=== PATIENT | female | born 1970 | race Two or more races ===

== ENCOUNTER 2019-03-29 19:31 | Emergency (ER) | payer BC ==
[~2019-03-29] VITALS: Ht 162.6 cm; Wt 81.6 kg
--- NOTE | 2019-03-29 19:45 | NUR ---
ED Nurse Note: Recieved pt from home, here with c/o urinary retention and drippling, states has not been able to urinate all day, has happend before in past after gallbladdre surgery but denies any urinary complications, pt attempted sample and unable to go, pt is ambulating bent over and in severe pain, pt bladder is distended, pt straight cath immediately, md informed immediately and urine sample snet, pt tolerated well, urine is clear with no sedimentations.
[2019-03-29 20:18] LABS: APPEARANCE,URINE CLEAR; BILIRUBIN, URINE NEGATIVE (NEGATIVE); COLOR,URINE PALE YELLOW; GLUCOSE, URINE (UA) NEGATIVE (NEGATIVE); KETONES,URINE NEGATIVE (NEGATIVE); LEUKOCYTE ESTERASE ,URINE NEGATIVE (NEGATIVE); NITRITE,URINE NEGATIVE (NEGATIVE); PH,URINE 6.5 (4.5-8.0); PROTEIN,URINE NEGATIVE (NEGATIVE); UROBILINOGEN,URINE NORMAL MG/DL (0.0-1.0)
--- NOTE | 2019-03-29 20:35 | NUR ---
ED Nurse Note: Pt attempted to urinate again, states was successful and not dribbling, pt denies pain, will continue to closely monitor, provider informed of pt results, will continue to monitor and prepare for disposition.
[2019-03-29 20:45] VITALS: BP 119/72
--- NOTE | 2019-03-29 20:55 | Emergency Room Report ---
History of Present Illness General Chief Complaint: Female Urogenital Problems Present Illness HPI 48-year-old female with no significant past medical history here complaining of 1 day of urinary urgency however 2 hours of being unable to void. Patient went earlier to an urgent care due to left-sided flank pain and abdominal pain CT scan without contrast was done patient shows me the report and shows a normal result. No renal stone or pyelonephritis noted. Patient also gave a urine sample which showed no infection at the urgent care and will send out for culture. However 2 hours ago she started being unable to void and having painful urination. Patient was catheterized at the emergency room today however was able to go urinate afterwards. Denies any fever and chills, nausea vomiting, vaginal discharge, abnormal menses. Patient denies any gynecological abnormalities in the past. Denies hematuria. Denies any renal disease. Allergies: Uncoded Allergies: SURGICAL TAPE (Allergy, Unknown, 03/29/19) Patient History Past Medical History: see triage record Past Surgical History: unable to obtain Pertinent Family History: none Last Menstrual Period: 02/26/19 Now: No Immunizations: UTD Reviewed Nursing Documentation: PMH: Agreed; PSxH: Agreed Review of Systems All Other Systems: negative except mentioned in HPI Physical Exam Vital Signs Date Time Temp Pulse Resp B/P (MAP) Pulse Ox O2 Delivery O2 Flow Rate FiO2 03/29/19 19:34 97.9 133 19 114/80 (91) 98 Room Air Sp02 EP Interpretation: reviewed, normal General Appearance: normal inspection, well appearing, no apparent distress, alert Head: normocephalic, atraumatic Eyes: bilateral eye normal inspection, bilateral eye PERRL ENT: normal ENT inspection, normal pharynx Neck: normal inspection, full range of motion, supple Respiratory: normal inspection, chest non-tender, lungs clear, no rhonchi Cardiovascular #1: normal inspection, regular rate, rhythm, no edema, no murmur Gastrointestinal: normal inspection, normal bowel sounds, non tender, soft, no organomegaly, no guarding Rectal: deferred Genitourinary: no CVA tenderness Musculoskeletal: normal inspection, back normal Neurologic: normal inspection, alert, oriented x3 Psychiatric: normal inspection, judgement/insight normal Skin: no rash Lymphatic: normal inspection, no adenopathy Medical Decision Making PA Attestation All diagnoses and treatment plans were reviewed and discussed with my supervising physician Dr. Moncada Diagnostic Impression: Primary Impression: Urinary urgency ER Course 48-year-old female with no significant past medical history here complaining of 1 day of urinary urgency however 2 hours of being unable to void. Patient went earlier to an urgent care due to left-sided flank pain and abdominal pain CT scan without contrast was done patient shows me the report and shows a normal result. No renal stone or pyelonephritis noted. Patient also gave a urine sample which showed no infection at the urgent care and will send out for culture. However 2 hours ago she started being unable to void and having painful urination. Patient was catheterized at the emergency room today however was able to go urinate afterwards. Denies any fever and chills, nausea vomiting, vaginal discharge, abnormal menses. Patient denies any gynecological abnormalities in the past. Denies hematuria. Denies any renal disease. Ddx considered but are not limited to: UTI, pylonephritis, urinary incontinence , prolapsed bladder Vital signs: are WNL, pt. is afebrile H&PE are most consistent with: Urinary urgency ORDERS: UA, urine , Keflex, Pyridium ED INTERVENTIONS: None required at this time. DISCHARGE: At this time pt. is stable for d/c to home. Will provide printed patient care instructions, and any necessary prescriptions. Care plan and follow up instructions have been discussed with the patient prior to discharge. The patient says she already has a prescription for Macrobid and has not started taking it yet advised her to take Keflex in order she has kidney infection orders on the verge of developing kidney infection as she is concerned about her pain on the side however she is negative for CVA tenderness. Advised patient to follow-up with a primary care provider to be referred to shoe associate for pelvic exam as well as a transvaginal ultrasound as there may be gynecological reasons for her symptoms. Last Vital Signs Date Time Temp Pulse Resp B/P (MAP) Pulse Ox O2 Delivery O2 Flow Rate FiO2 03/29/19 19:34 97.9 133 19 114/80 (91) 98 Room Air Disposition: HOME, SELF-CARE Condition: Stable Scripts Phenazopyridine Hcl* (PYRIDIUM*) 200 Mg Tablet 200 MG ORAL THREE TIMES A DAY for 2 Days, #6 TAB 0 Refills Prov: Navdeep Brunner 03/29/19 Cephalexin* (KEFLEX*) 500 Mg Capsule 500 MG ORAL EVERY 6 HOURS for 7 Days, #28 CAP Prov: Navdeep Brunner 03/29/19 Patient Instructions: Dysuria Additional Instructions: Take medication as directed follow-up with your shoe associate for transvaginal ultrasound as there may be an abnormality affecting your urine secondary to gynecological causes. Return to the emergency room with worsening symptoms. Navdeep Brunner Mar 29, 2019 20:55
[2019-03-29] MEDS ORDERED: PHENAZOPYRIDIN200 MG ORAL (20:56)
[2019-03-29] MEDS ORDERED: CEPHALEXIN500 MG ORAL (20:56)
[2019-03-29 21:05] VITALS: BP 119/72
--- NOTE | 2019-03-29 21:05 | NUR ---
ER DISCHARGE NOTE: Patient is cleared to be discharged per ERMD, pt is aox4, on room air, with stable vital signs. pt was given dc and prescription instructions, pt was able to verbalize understanding, pt id band removed without complications. pt is able to ambulate with steady gait. pt took all belongings.
== END 2019-03-29 21:05 | disposition home or self-care (01) ==
LOC: EMR 20:53
DX: R39.15 Urgency of urination (principal); Z91.048 Other nonmedicinal substance allergy status
CPT/HCPCS: 81001; 81025; 99283